=== PATIENT | female | born 1985 | race Caucasian/White ===

== ENCOUNTER 2016-09-04 08:41 | Emergency (ER) | payer MEDICAID ==
[~2016-09-04] VITALS: Ht 154.9 cm; Wt 75.0 kg
[~2016-09-04 08:41] MED LIST: IBUP-1542 PO; IBUP800T25 PO
[2016-09-04 08:50] VITALS: Ht 154.9 cm; Wt 75.0 kg
[2016-09-04] MEDS ORDERED: morphine 4 MG/ML VIAL IV STA (10:15)
[2016-09-04 10:20] LABS: URINE BLOOD (Dip) POC 3+ (NEGATIVE)
--- NOTE | 2016-09-04 10:27 | ERD ---
ER Documentation Chief Complaint Date/Time DATE: 09/04/16 TIME: 10:22 Chief Complaint R frontal h/a x 3 days HPI 31-year-old otherwise healthy female presents to the emergency department complaining of an 8 out of 10 throbbing constant frontal headache which radiates posteriorly and bilaterally. Patient denies any recent trauma. Patient notes associated nausea and photophobia but denies vomiting, dizziness, abdominal pain, blurred vision, or motor deficit. Patient states the headache first occurred while working. 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 Patient states the pain gradually worsened and has remained constant for the past 2 days. Patient states she has experienced headaches in the past but none of this severity. Patient attempted to treat her pain with Tylenol at home with little relief. Patient denies any recent illness or abdominal pain, diarrhea, fever, chills. ROS All systems reviewed and are negative except as per history of present illness. Medications Home Meds Active Scripts Ondansetron (Ondansetron Odt) 4 Mg Tab.rapdis, 4 MG PO Q6H Y for NAUSEA AND/OR VOMITING, #10 TAB Prov:MYNOR HEATON PA-C 09/04/16 Acetaminophen* (Tylenol*) 325 Mg Tablet, 2 TAB PO Q6 Y for PAIN AND OR ELEVATED TEMP, #20 TAB Prov:MYNOR HEATON PA-C 09/04/16 Ibuprofen* (Motrin*) 600 Mg Tab, 600 MG PO Q6, #30 TAB Prov:MYNOR HEATON PA-C 09/04/16 Hydrocodone/Acetaminophen ([place] 5-325 Tablet) 1 Each Tablet, 1 TAB PO Q6H Y for PAIN, #7 TAB Prov:MYNOR HEATON PA-C 09/04/16 Ibuprofen* (Ibuprofen*) 800 Mg Tab, 800 MG PO Q6H Y for PAIN, #30 TAB Prov:DAYNE RITTER PA-C 03/07/15 Ibuprofen* (Motrin*) 600 Mg Tab, 600 MG PO Q6, #30 TAB Prov:TRACIE MURRAY PA-C 03/05/15 Allergies Allergies: Coded Allergies: No Known Allergy (Unverified , 09/04/16) PMhx/Soc Medical and Surgical Hx: pt denies Medical Hx, pt denies Surgical Hx History of Surgery: No Anesthesia Reaction: No Hx Neurological Disorder: No Hx Respiratory Disorders: No Hx Cardiac Disorders: No Hx Psychiatric Problems: No Hx Miscellaneous Medical Probl: No Hx Alcohol Use: No Hx Substance Use: No Hx Tobacco Use: No Smoking Status: Never smoker Physical Exam Vitals Vital Signs Date Time Temp Pulse Resp B/P Pulse Ox O2 Delivery O2 Flow Rate FiO2 09/04/16 08:50 98.9 61 20 120/80 99 Physical Exam Const: Well-developed, well-nourished, in no acute distress Head: Atraumatic Eyes: Normal Conjunctiva ENT: Normal External Ears, Nose and Mouth. Neck: Full range of motion..~ No meningismus. Full range of motion at cervical spine. No tenderness to palpation along midline C-spine. Resp: Clear to auscultation bilaterally Cardio: Regular rate and rhythm, no murmurs Abd: Soft, non tender, non distended. Normal bowel sounds Skin: No petechiae or rashes Back: No midline or flank tenderness Ext: No cyanosis, or edema Neur: Awake and alert. Cranial nerves II through XII intact. Full range of motion and 5 out of 5 strength at upper and lower extremities bilaterally. EOMs intact. PERRLA. Normal gait. Psych: Normal Mood and Affect Results 24 hrs Laboratory Tests Test 09/04/16 10:24 Bedside Urine Blood 3+ Bedside Urine Glucose (UA) Negative Bedside Urine Ketones (LAB) Negative Bedside Urine Leukocyte Esterase (L Negative Bedside Urine Nitrite (LAB) Negative Bedside Urine Protein (LAB) 1+ Bedside Urine pH (LAB) 7.0 Current Medications Medications (Trade) Dose Ordered Sig/Nicola Route PRN Reason Start Time Stop Time Status Last Admin Dose Admin Sodium Chloride (NS) 1,000 ml @ 1,000 mls/hr Q1H ONCE IV 09/04/16 10:30 09/04/16 11:29 DC 09/04/16 10:29 Metoclopramide HCl (Reglan) 10 mg ONCE ONCE IV 09/04/16 10:30 09/04/16 10:31 DC 09/04/16 10:33 Morphine Sulfate (morphine) 4 mg ONCE STAT IV 09/04/16 10:15 09/04/16 10:19 DC 09/04/16 10:33 Acetaminophen (Tylenol Tab) 650 mg ONCE ONCE PO 09/04/16 10:30 09/04/16 10:31 DC 09/04/16 10:33 Ketorolac Tromethamine (Toradol) 30 mg ONCE STAT IV 09/04/16 11:06 09/04/16 11:07 DC 09/04/16 11:13 Procedures/MDM PROCEDURE: CT Brain without contrast. CLINICAL INDICATION: 3-day history of frontal headaches with nausea and vomiting TECHNIQUE: A CT of the brain was performed on a [employer] 64-slice CT scanner utilizing axial imaging from the skull base through the vertex without IV contrast. Multiplanar reformatted images were made. Images were reviewed on a PACS workstation. The CTDIvol is 39.64 mGy and the DLP is 554.95 mGycm. One or the following dose reduction techniques were used: -Automated exposure control. -Adjustment of the mA and/or KV according to patient's size. -Use of iterative reconstruction technique COMPARISON: None FINDINGS: There is no intracranial hemorrhage, mass effect, or midline shift. No extra- axial fluid collection is seen. The ventricles and sulci are normal in size and configuration. The density of the brain is normal, and the carmen white matter differentiation appears well-preserved. The osseous structures are grossly unremarkable. There is a small soft tissue density in the right sphenoid sinus, likely an inclusion cyst. IMPRESSION: 1. No evidence of acute intracranial pathology. 2. The brain is normal in appearance. 3. Probable inclusion cyst in the right sphenoid sinus RPTAT: [facility] Physician Sola Date Time Electronically viewed and signed by Physician Sola on 09/04/2016 10: 59 JH/ Patient received a bolus of fluids as well as a migraine cocktail including Tylenol, morphine, Reglan, Toradol. Patient notes significant improvement of symptoms posttreatment. CT scan of the head demonstrated no evidence of acute intracranial hemorrhage or deformity. test negative. Urine dip negative for any signs of bacteremia or hematuria. Clinical exam unremarkable for any neurologic deficit. Patient's symptoms improved drastically while in the emergency department. Clinical picture consistent with migraine headache. The patient's headache is unlikely related to serious etiology. The patient does not exhibit any clinical signs or symptoms, and has no risk factors to suggest headache etiology such as subarachnoid hemorrhage, acute vertebral or carotid dissection, intracranial mass, epidural, subdural hematoma, dural venous sinus thrombosis, giant cell arteritis, or pseudotumor cerebri. Based on patient's history of present illness and physical examination the decision was made to discharge. The patient was re-evaluated after ED treatment and stabilizing measures, and symptoms have improved. There is no evidence of life threatening injuries or illnesses at this time. On re-examination, patient resting in no distress, stable vital signs, reports feeling better and safe for discharge with outpatient follow up with PMD in 1-2 days. Patient given return precautions. Departure Diagnosis: Primary Impression: Migraine Migraine type: without aura Status migrainosus presence: without status migrainosus Intractability: not intractable Qualified Code: G43.009 - Migraine without aura and without status migrainosus, not intractable Additional Impressions: Nausea Headache Headache type: unspecified Headache chronicity pattern: acute headache Intractability: not intractable Qualified Code: R51 - Acute nonintractable headache, unspecified headache type MYNOR HEATON PA-C Sep 04, 2016 10:27
[2016-09-04] MEDS ORDERED: ACETAMINOPHEN 325 MG TAB PO ONE (10:30)
[2016-09-04] MEDS ORDERED: METOCLOPRAMIDE 10 MG INJ IV ONE (10:30)
[2016-09-04] MEDS ORDERED: SOD CHLORIDE 0.9% 1,000 ML IV ONE (10:30)
--- NOTE | 2016-09-04 10:59 | RADRPT ---
PROCEDURE: CT Brain without contrast. CLINICAL INDICATION: 3-day history of frontal headaches with nausea and vomiting TECHNIQUE: A CT of the brain was performed on a [employer] 64-slice CT scanner utilizing axial imaging from the skull base through the vertex without IV contrast. Multiplanar reformatted images were made. Images were reviewed on a PACS workstation. The CTDIvol is 39.64 mGy and the DLP is 554 .95 mGycm. One or the following dose reduction techniques were used: -Automated exposure control. -Adjustment of the mA and/or KV according to patient's size. -Use of iterative reconstruction technique COMPARISON: None FINDINGS: There is no intracranial hemorrhage, mass effect, or midline shift. No extra-axial fluid collection is seen. The ventricles and sulci are normal in size and configuration. The density of the brain is normal, and the carmen white matter differentiation appears well-preserved. The osseous structures a re grossly unremarkable. There is a small soft tissue density in the right sphenoid sinus, likely an inclusion cyst. IMPRESSION: 1. No evidence of acute intracranial pathology. 2. The brain is normal in appearance. 3. Probable inclusion cyst in the right sphenoid sinus RPTAT: [facility] Physician Sola Date Time Electronically viewed and signed by Physician Sola on 09/04/2016 10:59 /
[2016-09-04] MEDS ORDERED: KETOROLAC 30 MG INJ IV STA (11:06)
[2016-09-04] MEDS ORDERED: IBUP-1542 PO (11:08)
[2016-09-04] MEDS ORDERED: ACET325T33 PO (11:08)
[2016-09-04] MEDS ORDERED: ONDA4TAB14 PO (11:08)
[2016-09-04] MEDS ORDERED: HYDR-906 PO (11:08)
== END 2016-09-04 12:15 | disposition home or self-care (01) ==
LOC: FTE 08:41
DX: G43.009 Migraine without aura, not intractable, without status migrainosus (principal); R11.0 Nausea
CPT/HCPCS: 36415; 70450; 81003; 96374; 96375; J1885; J2270; J2765; J7030; Z7502; Z7610

== ENCOUNTER 2017-03-20 08:32 | Emergency (ER) | payer MEDICAID ==
[~2017-03-20] VITALS: Ht 157.5 cm; Wt 72.0 kg
[~2017-03-20 08:32] MED LIST changes: +ACET325T33 PO; +HYDR-906 PO; +ONDA4TAB14 PO
[2017-03-20 08:33] VITALS: Ht 157.5 cm; Wt 72.0 kg
[2017-03-20] MEDS ORDERED: KETOROLAC 30 MG INJ IM STA (08:51)
[2017-03-20] MEDS ORDERED: CYCL5TAB PO (09:07)
[2017-03-20] MEDS ORDERED: IBUP-1542 PO (09:07)
--- NOTE | 2017-03-20 09:28 | ERD ---
ER Documentation Chief Complaint Date/Time DATE: 03/20/17 TIME: 09:27 Chief Complaint c/o lower back pain with pain radiate to right leg for 3 days HPI 31-year-old female history of low back pain presents with lumbar back pain going to her right lower extremity for 3 days. She states she was at work, walking denies trauma. This pain is described as sharp, achy, moderate to severe, radiating from her lumbar back to her right lower leg. She denies saddle anesthesia loss of bowel bladder function. Patient denies dysuria, urgency or frequency. She denies fevers or chills. ROS All systems reviewed and are negative except as per history of present illness. Medications Home Meds Active Scripts Cyclobenzaprine Hcl* (Cyclobenzaprine Hcl*) 5 Mg Tablet, 5 MG PO Q8H Y for PAIN , #15 TAB Prov:TRACIE MURRAY PA-C 03/20/17 Ibuprofen* (Motrin*) 600 Mg Tab, 600 MG PO Q6, #30 TAB Prov:TRACIE MURRAY PA-C 03/20/17 Ondansetron (Ondansetron Odt) 4 Mg Tab.rapdis, 4 MG PO Q6H Y for NAUSEA AND/OR VOMITING, #10 TAB Prov:MYNOR HEATON PA-C 09/04/16 Acetaminophen* (Tylenol*) 325 Mg Tablet, 2 TAB PO Q6 Y for PAIN AND OR ELEVATED TEMP, #20 TAB Prov:MYNOR HEATON PA-C 09/04/16 Ibuprofen* (Motrin*) 600 Mg Tab, 600 MG PO Q6, #30 TAB Prov:MYNOR HEATON PA-C 09/04/16 Hydrocodone/Acetaminophen ([place] 5-325 Tablet) 1 Each Tablet, 1 TAB PO Q6H Y for PAIN, #7 TAB Prov:MYNOR HEATON PA-C 09/04/16 Ibuprofen* (Ibuprofen*) 800 Mg Tab, 800 MG PO Q6H Y for PAIN, #30 TAB Prov:DAYNE RITTER PA-C 03/07/15 Ibuprofen* (Motrin*) 600 Mg Tab, 600 MG PO Q6, #30 TAB Prov:TRACIE MURRAY PA-C 03/05/15 Allergies Allergies: Coded Allergies: No Known Allergy (Unverified , 09/04/16) PMhx/Soc History of Surgery: No Anesthesia Reaction: No Hx Neurological Disorder: No Hx Respiratory Disorders: No Hx Cardiac Disorders: No Hx Psychiatric Problems: No Hx Miscellaneous Medical Probl: No Hx Alcohol Use: No Hx Substance Use: No Hx Tobacco Use: No Physical Exam Vitals Vital Signs Date Time Temp Pulse Resp B/P Pulse Ox O2 Delivery O2 Flow Rate FiO2 03/20/17 08:33 98.6 75 18 113/75 99 Physical Exam General: Well-developed, well-nourished. The patient appears in no acute distress. HEENT: Head is normocephalic, atraumatic. No scleral icterus. Neck: Supple. Nontender. Lungs: Clear to auscultation. Normal air movement. Heart: Regular rate and rhythm. S1 and S2 are normal. No murmurs, gallops, or rubs. Abdomen: Soft, nontender, nondistended. Bowel sounds are normoactive. Back: No midline tenderness, lumbosacral tenderness, as well as paraspinal tenderness on the right side. Strength lower extremities 5 out of 5 bilaterally. Extremities: No clubbing or cyanosis. Normal pulses. Moving extremities x 4. No weakness. Neurologic: Alert and oriented 3. No focal deficits. Skin: Normal turgor. No rash or lesions. Results 24 hrs Current Medications Medications (Trade) Dose Ordered Sig/Nicola Route PRN Reason Start Time Stop Time Status Last Admin Dose Admin Ketorolac Tromethamine (Toradol) 30 mg ONCE STAT IM 03/20/17 08:51 03/20/17 08:52 DC 03/20/17 09:05 Procedures/MDM 28-year-old female presents with low back pain on the right side after she was walking at work, symptoms are most consistent with sciatica without signs of any neurovascular injury. Patient's pain is also muscular, she has paraspinal tenderness and will be given Flexeril as well as NSAIDs for her pain. Patient' s spine symptoms have stabilized while they have been evaluated in the department and are appropriate for outpatient work up. No evidence of cauda equina, cord compression, infiltrative, or infectious etiology. Departure Diagnosis: Primary Impression: Back pain Condition: Good Patient Instructions: Back Pain W/ Sciatica TRACIE MURRAY PA-C Mar 20, 2017 09:28
== END 2017-03-20 09:17 | disposition home or self-care (01) ==
LOC: FTE 08:32
DX: M54.5 Low back pain (principal)
CPT/HCPCS: 96372; J1885; Z7502